=== PATIENT | female | born 1930 | race Caucasian/White ===

== ENCOUNTER 2017-03-18 19:10 | Observation (INO) | payer MEDICARE, OTHER ==
[2017-03-18] MEDS ORDERED: FAMOTIDINE 20 MG TAB PO ONE (19:37)
[2017-03-18] MEDS ORDERED: ONDANSETRON ODT 8 MG TAB SL ONE (19:37)
[2017-03-18] MEDS ORDERED: SODIUM CHLORIDE 0.9% 1000ML 1,000 ML IVS ONE (19:37)
[2017-03-18] MEDS ORDERED: ONDANSETRON ODT 8 MG TAB ONE (20:46)
[2017-03-18] MEDS ORDERED: FAMOTIDINE 20 MG TAB ONE (20:47)
--- NOTE | 2017-03-18 20:54 | CT ---
PROCEDURE: Head HISTORY: syncope Indication: Same as above Comparison: 03/08/2015 Technique: CT of the head was done without intravenous contrast was done in the orthogonal planes. This exam was performed according to our departmental dose-optimization program, which includes automated exposure control, adjustment of the mA and/or KV according to the patient's size and/or use of iterative reconstruction technique. FINDINGS: There is no intracranial hemorrhage, midline shift mass effect or acute focal infarct. There is presence of a large left superior periorbital and inferior frontal scalp swelling and hematoma measuring 3.6 x 1.5 x 3.2 cm There is prominence of the sylvian fissures and the cortical sulci reflecting age related volume loss. There is periventricular and deep white matter low attenuation, most likely related to small vessel white matter ischemic disease. Intracranial vascular calcifications are seen. If clinical concern exists regarding an acute ischemic/vascular pathology being responsible for patient's symptomatology, an MRI of the brain is more sensitive than the current study, in ruling out such a possibility. There is good stanley/white matter differentiation. The ventricular system is normal. The mastoid air cells are unremarkable . The paranasal sinuses are unremarkable . There is no visualization of acute fractures involving the calvarium or the skull base. IMPRESSION: There is no acute intracranial abnormality.There is presence of a large left superior periorbital and inferior frontal scalp swelling and hematoma measuring 3.6 x 1.5 x 3.2 cm Age related and chronic involutional changes are seen. Electronically signed by: Nathan Kelsey MD 03/18/2017 8:52 PM CDT Workstation: [id number]
--- NOTE | 2017-03-18 21:02 | RAD ---
PROCEDURE: Abdomen Series Clinical History: nvd 3 days Indication: Same as above Comparison: None Technique: Two views of the abdomen and pelvis were done. Findings: There is no gross evidence of free air in the abdomen or the pelvis . The small and large bowel gas pattern does not show any evidence of obstruction, ileus or bowel wall thickening. There is no visualization of radiopaque calculi in the outline of the urinary tract. The visualized lung bases are unremarkable . There is no significant constipation. Impression: There are no acute findings in the chest, abdomen and pelvis Location of Interpretation: [id number] Electronically signed by: Nathan Kelsey MD 03/18/2017 9:01 PM CDT Workstation: [id number]
[2017-03-18] MEDS ORDERED: SOD CHL 3% *HYPERTONIC* 500ML 160 ML IVS ONE (21:07)
[2017-03-18] MEDS ORDERED: SUCRALFATE 1 GM/10 ML 1 GM UD PO ONE (21:10)
[2017-03-18] MEDS ORDERED: LEVOTHYROXINE SODIUM 0.1 MG TAB ONE (21:39)
[2017-03-18] MEDS ORDERED: LEVOTHYROXINE SODIUM 0.025 MG TAB ONE (21:39)
--- NOTE | 2017-03-18 23:16 | ED.PDOC ---
History of Present Illness - General Chief Complaint: Syncope/Near Syncope Stated Complaint: nausea, diarhea, syncopal episode Time Seen by Provider: 03/18/17 19:21 Source: patient, family Exam Limitations: clinical condition - History of Present Illness Initial Comments: The patient is an 86-year-old female with history of some mild dementia presenting after a syncopal episode. The patient had been having some nausea and vomiting as well as some mild diarrhea for the last couple of days. Discussing with family she apparently has these episodes 5 or 6 times a year. They have seen gastroenterology in the distant past and she did have a endoscopy done however family is unsure of what the findings were at the time. She has not been having any fevers. She does not have any abdominal pain. She has a large hematoma over her left eye where she hit. She has had multiple falls in the past from similar previous syncopal episodes. Family is unsure what workup has been done to that end. Again the patient does have moderate dementia which limits her input. She is not short of breath. Aside from the discomfort over her eyes she is not hurting anywhere. Extraocular movements are intact and vision appears to be at baseline. There've been no recent medication changes. The patient is on several medications that can contribute to syncope including Norvasc, metoprolol, Aricept, and Toviaz. The patient was noted to be significantly bradycardic with a sinus bradycardia in the high 40s upon arrival here. This did improve over the next few hours with treatment. No chest pain. No shortness of breath. Family denies any blood or bile in the vomitus. No blood in the stool. No recent dietary changes.the patient also apparently does have a significant history of B12 deficiency. She also has a history of thyroid insufficiency. Timing/Duration: unsure Severity: moderate Improving Factors: nothing Worsening Factors: nothing Associated Symptoms: malaise, nausea/vomiting, syncope, weakness Allergies/Adverse Reactions: Allergies Beta Adrenergic Blockers Allergy (Verified 03/18/17 19:35) Home Medications: Ambulatory Orders Amlodipine Besylate [Norvasc] 10 mg PO DAILY 03/08/15 Carboxymethylcellulose Sodium [Refresh Tears] 0.5 % OP DAILY 03/08/15 Cyanocobalamin [Vitamin B-12] 2,500 mcg SL DAILY 03/08/15 Donepezil Hydrochloride [Donepezil HCl] 10 mg PO DAILY 03/08/15 Garlic [Garlic 705 mg] 1 cap PO DAILY 03/08/15 Levothyroxine Sodium [Synthroid] 75 mcg PO DAILY 03/08/15 Metoprolol Succinate [Metoprolol Succinate ER] 25 mg PO DAILY 03/08/15 Multiple Vitamin [Ocuvite] 1 tab PO DAILY 03/08/15 Potassium Chloride [Potassium Chloride ER] 40 meq PO BID 03/08/15 Timolol Maleate (Ophth) [Timolol Maleate] 0.25 % OPHTH DAILY 03/08/15 Triamterene & Hydrochlorothiaz [Triamterene/Hydrochloroth 37.5-25 mg] 1 cap PO DAILY 03/08/15 Zinc Gluconate [Zinc] 10 mg MT DAILY 03/08/15 Magnesium 1 tab PO 03/18/17 Review of Systems - Review of Systems Constitutional: States: malaise, weakness EENTM: States: no symptoms reported Respiratory: States: no symptoms reported Cardiology: States: no symptoms reported Gastrointestinal/Abdominal: States: diarrhea, nausea, vomiting. Denies: abdominal pain, constipation Genitourinary: States: no symptoms reported Musculoskeletal: States: no symptoms reported Skin: States: see HPI Neurological: States: other - syncope and dementia Endocrine: States: excessive sweating - the patient was mildly diaphoretic upon arrival here. All other Systems: No Change from Baseline Past Medical History (General) - Patient Medical History Hx Seizures: No Hx Stroke: No Hx Cardiac Disorders: No Hx Congestive Heart Failure: No Hx Pacemaker: No Hx Hypertension: Yes Hx Thyroid Disease: Yes Hx Diabetes: No Surgical History: appendectomy, cholecystectomy, Hysterectomy - Vaccination History Hx Influenza Vaccination: Yes Hx Pneumococcal Vaccination: Yes - Social History Hx Tobacco Use: No Hx Alcohol Use: No Family Medical History - Family History Mother Hx Cardiac Disease: Yes Physical Exam - Physical Exam General Appearance: Alert, Ill Appearing Eye Exam: bilateral normal Ears, Nose, Throat: hearing grossly normal, normal ENT inspection, normal pharynx, other - large hematoma is present over the right eye. 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 The patient seems to follow instructions well. She recognizes her family members. She understands she is at the hospital. Skin Exam: normal color - with the exception of the hematoma over the left eye. No evidence of bony crepitus underlying. Comments: Vital Signs - 24 hr 03/18/17 03/18/17 03/18/17 19:26 20:10 21:10 Temperature 95.0 F L Pulse Rate [ 48 L 48 L 54 L Apical] Respiratory 14 16 15 Rate Blood Pressure 155/51 96/49 127/58 [Left Arm] O2 Sat by Pulse 97 97 96 Oximetry 03/18/17 03/18/17 03/18/17 21:51 22:00 22:17 Temperature 96.7 F L Pulse Rate [ 61 62 68 Apical] Respiratory 15 Rate Blood Pressure 155/75 160/67 183/63 [Left Arm] O2 Sat by Pulse 95 Oximetry 03/18/17 03/18/17 22:18 22:49 Temperature Pulse Rate [ 66 62 Apical] Respiratory 12 Rate Blood Pressure 128/66 139/64 [Left Arm] O2 Sat by Pulse 96 Oximetry Progress - Progress Progress: 03/18/17 23:21 the patient is a 86-year-old female with advancing dementia presenting after a syncopal episode related to one of her nausea and vomiting episodes. The patient was given a liter of IV fluids. She is feeling a little better afterwards. The patient had significant sinus bradycardia upon arrival and this has improved as well. The patient has significant hyponatremia and hypochloremia. She has received a liter of normal saline and is currently receiving low-flow 3% saline for a total of 160 cc. She will need a recheck of her electrolytes in the morning. The patient additionally appears to be hypothyroid with a TSH of around 15. Medications will need to be adjusted. Patient does have elevation of muscle enzymes which may be from the fall. Consideration should be given to discontinuation of the statin in a person of her age with her numerous concomitant medications. Head CT is reassuring. Consideration should be given to obtaining carotid Dopplers within the coming weeks. Continue telemetry monitoring. Consideration could also be given to reducing the metoprolol dose possibly reducing the Norvasc doses well. The B12 level should be checked sometime in the next few weeks. Admit for management of the above problems.a repeat evaluation with gastroenterology in the near future may be warranted.the scalp hematoma appears static at this point. - Results/Orders Results/Orders: 03/18/17 19:45 EKG STAT shows sinus bradycardia at a rate of 54 bpm. There is at least one PAC. There is a left bundle branch block which was present since 2015 in comparison. No definitive acute ST segment changes in comparison with previous EKG. Laboratory Results - last 24 hr 03/18/17 03/18/17 03/18/17 19:50 19:50 19:50 WBC 12.8 H RBC 4.71 Hgb 14.2 Hct 43.1 MCV 91.4 MCH 30.2 MCHC 33.1 RDW 14.0 Plt Count 243 MPV 8.7 Absolute Neuts (auto) 9.40 H Absolute Lymphs (auto) 1.90 Absolute Monos (auto) 1.10 H Absolute Eos (auto) 0.30 Absolute Basos (auto) 0.10 Neutrophils % 73.8 Lymphocytes % 15.1 L Monocytes % 8.4 Eosinophils % 2.0 Basophils % 0.7 PT 11.0 INR 0.970 PTT (SP) 23.3 L Sodium 126 L Potassium 3.6 Chloride 90 L Carbon Dioxide 26 Anion Gap 13.6 BUN 12 Creatinine 0.68 BUN/Creatinine Ratio 17.6 Random Glucose 197 H Serum Osmolality 258.6 L Lactic Acid Calcium 9.7 Magnesium 1.9 Total Bilirubin 1.0 AST 26 ALT 12 Alkaline Phosphatase 60 Creatine Kinase 158 H CK-MB (CK-2) 5.0 H* CK-MB (CK-2) % 3.16 Troponin I < 0.02 B-Natriuretic Peptide 71.1 Serum Total Protein 7.6 Albumin 4.4 Globulin 3.2 Albumin/Globulin Ratio 1.4 Amylase 60 Lipase 32 TSH 15.42 H Urine Color Urine Appearance Urine pH Ur Specific West Urine Protein Urine Glucose (UA) Urine Ketones Urine Blood Urine Nitrite Urine Bilirubin Urine Urobilinogen Ur Leukocyte Esterase Urine RBC Urine WBC Amorphous Sediment Urine Bacteria 03/18/17 03/18/17 19:50 22:15 WBC RBC Hgb Hct MCV MCH MCHC RDW Plt Count MPV Absolute Neuts (auto) Absolute Lymphs (auto) Absolute Monos (auto) Absolute Eos (auto) Absolute Basos (auto) Neutrophils % Lymphocytes % Monocytes % Eosinophils % Basophils % PT INR PTT (SP) Sodium Potassium Chloride Carbon Dioxide Anion Gap BUN Creatinine BUN/Creatinine Ratio Random Glucose Serum Osmolality Lactic Acid 1.1 Calcium Magnesium Total Bilirubin AST ALT Alkaline Phosphatase Creatine Kinase CK-MB (CK-2) CK-MB (CK-2) % Troponin I B-Natriuretic Peptide Serum Total Protein Albumin Globulin Albumin/Globulin Ratio Amylase Lipase TSH Urine Color Yellow Urine Appearance Sl cloudy Urine pH 7.5 Ur Specific West 1.020 Urine Protein 30 Urine Glucose (UA) Negative Urine Ketones Negative Urine Blood Negative Urine Nitrite Negative Urine Bilirubin Negative Urine Urobilinogen 0.2 Ur Leukocyte Esterase Negative Urine RBC 0 Urine WBC 1-3 Amorphous Sediment 3+ Urine Bacteria 2+ H two-view abdomen shows no acute pathology. head CT shows the left scalp hematoma but no other acute pathology. - EKG/XRAY/CT CT Ordered: Yes Departure - Departure Clinical Impression: Hyponatremia Syncope Qualifiers: Syncope type: unspecified Qualified Code(s): R55 - Syncope and collapse Hypothyroidism Qualifiers: Hypothyroidism type: unspecified Qualified Code(s): E03.9 - Hypothyroidism, unspecified Cyclical vomiting with nausea Qualifiers: Vomiting Intractability: non-intractable Qualified Code(s): G43.A0 - Cyclical vomiting, not intractable Disposition: Admit Patient Home Medications: Ambulatory Orders Amlodipine Besylate [Norvasc] 10 mg PO DAILY 03/08/15 Carboxymethylcellulose Sodium [Refresh Tears] 0.5 % OP DAILY 03/08/15 Cyanocobalamin [Vitamin B-12] 2,500 mcg SL DAILY 03/08/15 Donepezil Hydrochloride [Donepezil HCl] 10 mg PO DAILY 03/08/15 Garlic [Garlic 705 mg] 1 cap PO DAILY 03/08/15 Levothyroxine Sodium [Synthroid] 75 mcg PO DAILY 03/08/15 Metoprolol Succinate [Metoprolol Succinate ER] 25 mg PO DAILY 03/08/15 Multiple Vitamin [Ocuvite] 1 tab PO DAILY 03/08/15 Potassium Chloride [Potassium Chloride ER] 40 meq PO BID 03/08/15 Timolol Maleate (Ophth) [Timolol Maleate] 0.25 % OPHTH DAILY 03/08/15 Triamterene & Hydrochlorothiaz [Triamterene/Hydrochloroth 37.5-25 mg] 1 cap PO DAILY 03/08/15 Zinc Gluconate [Zinc] 10 mg MT DAILY 03/08/15 Magnesium 1 tab PO 03/18/17 Decision To Admit - Decistion To Admit Decision to Admit Reason: Medical Nature Decision to Admit Date: 03/18/17 Decision to Admit Time: 23:26
--- NOTE | 2017-03-18 23:27 | HP ---
SUPERVISING PHYSICIAN: Ramírez Garcia MD CHIEF COMPLAINT: Syncopal episode with diarrhea. HISTORY OF PRESENT ILLNESS: Ms. Wellington is an 86-year-old, female patient who presented to the Emergency Department on 03/18/17 after she was having some episodes of diarrhea with some nausea over the last couple of days. It was noted on exam initially that she had a severe hematoma and ecchymotic area to the left orbital area from a fall. She noted she had tripped this previous or Saturday at home and landed on a chair. She denied any loss of consciousness, any headaches, any changes in vision. Her vital signs initially in the Emergency Department showed that she was bradycardic with a heart rate of 48. Blood pressure was 155/51. She was afebrile and satting 95 on room air. Review of the Emergency Room records indicate that the patient has had multiple episodes in the past year, 5 to 6 times, where she has had cyclic type vomiting and she was actually followed in the past by gastroenterology. Laboratory studies showed she had a mild leukocytosis of 12.8. Electrolytes included hyponatremia with sodium 126. TSH was elevated at 15.2. She does have a history of hypothyroidism for which she takes levothyroxine. In the Emergency Room, she was started on hypertonic saline and given a total of 116 cc in efforts to correct the sodium. Also of note, she does take a blood pressure medicine combination that has hydrochlorothiazide 25 mg. Her 12 lead EKG showed a sinus bradycardia with a left bundle branch block which was similar to comparison in 2015. There were no noted acute ST segment changes. She then had a CT of the head for evaluation of the above head injury from same level fall and per radiologic interpretation, CT head without contrast showed no intracranial hemorrhage, midline shift, mass effects, or acute focal infarct. There was note of a large left superior periorbital and frontal scalp swelling and hematoma. She also had an abdominal series and per radiologic interpretation there were no acute findings in the chest, abdomen or pelvis. Dr. Kaur, Emergency Room physician, requested the patient be placed in observation with concerns for hyponatremia resulting in her fall in the past with hypertonic saline initiated in the Emergency Room as well as further investigation of the diarrhea as necessary and further close management. The patient was placed in observation in stable condition. PAST MEDICAL HISTORY: 1. Hypertension. 2. Dementia. 3. Hypothyroidism. PAST SURGICAL HISTORY: 1. Appendectomy. 2. Cholecystectomy. 3. Hysterectomy. HOME MEDICATIONS: 1. Donepezil 10 mg daily. 2. Vitamin B12 2500 mcg sublingual daily. 3. Refresh artificial tears 0.5% ophthalmic solution daily. 4. Norvasc 10 mg daily. 5. Zinc 10 mg daily. 6. Triamterene and hydrochlorothiazide 37.5/25 mg 1 capsule daily. 7. Timolol 0.25% ophthalmic solution daily. 8. Potassium chloride extended release 40 mEq twice daily. 9. Multivitamin, Ocuvite 1 capsule daily. 10. Metoprolol succinate extended release 25 mg daily. 11. Synthroid 75 mcg daily. 12. Garlic supplementation daily. 13. Magnesium daily. ALLERGIES: BETA ADRENERGIC BLOCKERS. FAMILY HISTORY: Positive for hypertension and cardiovascular disease. SOCIAL HISTORY: The patient lives outside of [place]. She is . 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 She has no history of smoking or tobacco use of any sort, nor does she drink alcohol or utilize illicit drugs. REVIEW OF SYSTEMS: CONSTITUTIONAL: As noted in history of present illness, malaise and weakness. HEENT: As noted in history of present illness, old traumatic injury, closed head injury from a same level fall with no reported changes in vision or orbital pain. RESPIRATORY: Denies any shortness of breath, cough. CARDIOVASCULAR: Denies chest pain or palpitations. As per history of present illness, questionable syncopal episode at home in the last several days. GASTROINTESTINAL: Denies abdominal pain or constipation, but notes she has had some diarrhea, nausea and vomiting. GENITOURINARY: Denies any symptoms. NEUROLOGIC: As noted in history of present illness, syncopal episode and dementia. PHYSICAL EXAMINATION: VITAL SIGNS: Initial vital signs in the Emergency Department showed temperature 95, pulse 48, blood pressure 155/51, respirations 14, saturation 95% on room air. Admission weight was 60.8 kg. GENERAL: The patient appears to be comfortable and in no acute distress. She does appear to be ill. There is noticeable swelling over the left eye which she says is without any vision changes at this point. Large hematoma overlies the right eyelid with notable changes in color from yellow to black. HEENT: Pupils equal and reactive. NECK: Full range of motion. No jugular venous distention noted. CHEST: Lungs clear to auscultation bilaterally without any rhonchi, wheezes, or rales. CARDIOVASCULAR: Regular rate and rhythm without any appreciable murmurs, gallops, or rubs. ABDOMEN: Obese, but soft, nontender. Positive bowel sounds. EXTREMITIES: There is no edema on admission. Distal pulses are strong. Capillary refill brisk. NEUROLOGIC: Cranial nerves II-XII are grossly intact. Facial features are symmetrical. Extraocular movements are within normal limits. Pupils were reactive and responsive to light. LABORATORY: CBC on admission showed a mild leukocytosis of 12.8, hemoglobin 14.2, hematocrit 43.1, platelet count 243,000. Differential without left shift initially. Coag studies showed PT 11 with PT-T 23.3. Chemistries on admission show sodium 126, potassium normal at 3.6, BUN 12, creatinine 0.68, glucose 197, lactic acid 1.1, CPK elevated at 158 with CK-MB of 5. Initial laboratories included TSH and lipase. Lipase was negative with TSH being elevated at 15.4. Pancreatic enzymes were all within normal limits. Troponin was less than 0.02. Urinalysis showed microscopic with 0 RBCs, 1 to 3 WBCs, 2+ bacteria, otherwise within normal limits. RADIOLOGY: Abdominal x-ray per radiologic interpretation showed no acute findings in the chest, abdomen and pelvis. She also had an abdominopelvic series and per radiologic interpretation, there are no acute findings. EKG showed sinus bradycardic rhythm of 54 with what appears to be a first degree AV block and there was note of one rare PAC on exam. There was also note of a left bundle branch that was present since 2015 on comparison. ASSESSMENT: 1. Electrolyte imbalance to include a moderate hyponatremia, felt to be secondary to medications to include hydrochlorothiazide, possibly resulting in the patient having some disorientation and falls in the past. 2. Hypertension. 3. Dementia. 4. Near syncopal episode. 5. Hypothyroidism with elevated TSH on supplementation. 6. Closed head injury with a large hematoma with no evidence of orbital involvement, secondary to recent same level fall. PLAN: The patient was placed in observation on the Medical/Surgical Floor from the Emergency Room with correction of sodium being initiated and continued prior to admission with hypertonic saline for a total of 116 mL. We will plan to repeat laboratory studies in the morning. We will update her list of medications, verify and resume as soon as available. She will be on DVT prophylaxis per protocol with anticipated length of stay to be one to two days, hopefully discharging later today. Until then, we will continue to monitor the patient closely and treat appropriately and address any issues that arise. #[id number] [facility]
[2017-03-19] MEDS ORDERED: ACETAMINOPHEN 325 MG TAB PO PRN (01:28)
[2017-03-19] MEDS ORDERED: SODIUM CHLORIDE 0.9% (FLUSH) 10 ML SYG IV PRN (01:28)
[2017-03-19] MEDS ORDERED: IV SET AND CAP CHANGE INJ INJ SCH (01:30)
[2017-03-19 05:59] VITALS: O2SAT 95
[2017-03-19] MEDS ORDERED: SODIUM CHLORIDE 0.9% (FLUSH) 10 ML SYG IV SCH (09:00)
[2017-03-19 10:49] VITALS: BP 137/70; TEMP 98.5
--- NOTE | 2017-03-19 14:26 | RAD ---
EXAM DESCRIPTION: Orbits CLINICAL HISTORY: fall COMPARISON: CT head March 18, 2017 IMPRESSION: 3 views of the skull and left orbit show no obvious fracture or focal bone destruction. There is asymmetric opacification of the left maxillary sinus compared to the right suggesting subacute chronic sinus disease. Periorbital soft tissue swelling on previous CT scan is not appreciated on plain film x-ray. Electronically signed by: Mook Calles MD 03/19/2017 2:25 PM CDT
[2017-03-19] MEDS ORDERED: LEVOTHYROXINE SODIUM 0.1 MG, LEVOTHYROXINE SODIUM 0.025 MG PO ONE ×2 (21:09)
--- NOTE | 2017-03-20 11:59 | DS ---
SUPERVISING PHYSICIAN: Ramírez Garcia MD DISCHARGE DIAGNOSIS: 1. Electrolyte imbalance to include moderate hyponatremia, most likely secondary to medications that include hydrochlorothiazide, probably resulting in the patient having some disorientation and history of falls in the past. 2. Hypertension. 3. Dementia. 4. Near syncopal episode. 5. Hypothyroidism with elevated TSH on supplementation. 6. Closed head injury with a large hematoma with no evidence of orbital involvement, secondary to recent same level fall. HISTORY OF PRESENT ILLNESS: This is an 86-year-old, female patient who presented to the Emergency Department on 03/18/17 after she has some episodes of diarrhea with some nausea that had been going on for several days. She actually fell at home and had a large hematoma with ecchymosis to the left orbital area from the fall. She had tripped and fallen onto a chair. She denied any loss of consciousness, any headaches or any changes in vision. Her vital signs initially in the Emergency Department were stable with the exception of her heart rate was bradycardic with a heart rate of 48. The records show that the patient has had multiple episodes of diarrhea, nausea and vomiting, 5 to 6 times per year, and that she is actually being followed by gastroenterology. 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 Initial laboratory studies showed she had a leukocytosis of 12.8 and hyponatremia with sodium 126. TSH was elevated at 15.2. She is on levothyroxine. In the Emergency Room, she was given some hypertonic saline with a total of 116 cc. She also takes hydrochlorothiazide at home. Her EKG was similar to her EKG in 2015 and showed a left bundle branch block with bradycardia. She had a CT of the head and per radiologic interpretation, CT head without contrast showed no intracranial hemorrhage, midline shift, mass effect, or acute focal infarct. She had a large large left superior periorbital and frontal scalp swelling and hematoma. Her abdominal series per radiologic interpretation showed no acute findings in the chest, abdomen or pelvis. The patient was placed in observation for concerns of hyponatremia as well as her diarrhea and to monitor her electrolytes. HOSPITAL COURSE: The patient was given IV fluids and she had no other incidences of diarrhea or nausea and vomiting. This morning, her sodium improved to 132 with potassium 3.4. Chloride was 98. Her levothyroxine was increased and she was started on a dose of 125 mcg of levothyroxine times one. Orbital x-ray series was done on her eye and she will be discharged. DISCHARGE PLAN: The patient will be discharged home in stable condition. She is to return to the hospital or followup with Lincoln Beasley, her primary care provider, for any further problems. Per the chart, her levothyroxine was at 75 mcg and I have increased it to 100 mcg. She will followup with Lincoln Beasley on , 03/21/17, at 10:30 AM. She will need to have a repeat of her lab to check her sodium level. He can review her x-ray of her orbits as well as discuss her new dosing of levothyroxine and followup on her TSH levels. She is to resume her previous diet and continue her home medications. DISCHARGE MEDICATIONS.: 1. Multivitamins. 2. Refresh tears. 3. Timolol maleate ophthalmic drops. 4. Vitamin B12. 5. Zinc. 6. Donepezil. 7. Potassium chloride. 8. Metoprolol succinate. 9. Triamterene/hydrochlorothiazide. 10. Levothyroxine 100 mcg daily. 11. Amlodipine. 12. Garlic. 13. Magnesium. Dr. Garcia is the collaborating physician and available for consultation. #[id number] [facility]
== END 2017-03-19 14:46 | disposition home or self-care (01) ==
LOC: ER 19:10 → MS 23:25
PROVIDERS: ADMIT Nurse Practitioner Family; ATTEND Nurse Practitioner Family
DX: E87.1 Hypo-osmolality and hyponatremia (principal); E87.8 Other disorders of electrolyte and fluid balance, not elsewhere classified; I10 Essential (primary) hypertension; F03.90 Unspecified dementia, unspecified severity, without behavioral disturbance, psychotic disturbance, mood disturbance, and anxiety; R55 Syncope and collapse; E03.9 Hypothyroidism, unspecified; S05.12XA Contusion of eyeball and orbital tissues, left eye, initial encounter; S09.90XA Unspecified injury of head, initial encounter; D72.829 Elevated white blood cell count, unspecified; I44.7 Left bundle-branch block, unspecified; W01.0XXA Fall on same level from slipping, tripping and stumbling without subsequent striking against object, initial encounter; Y92.009 Unspecified place in unspecified non-institutional (private) residence as the place of occurrence of the external cause; Z79.899 Other long term (current) drug therapy; Z88.8 Allergy status to other drugs, medicaments and biological substances; Z91.81 History of falling; Z90.49 Acquired absence of other specified parts of digestive tract; Z90.710 Acquired absence of both cervix and uterus; Z82.49 Family history of ischemic heart disease and other diseases of the circulatory system
CPT/HCPCS: 36415 ×3; 70200; 70450; 74020; 80048; 80053; 81001; 82150; 82550; 82553; 83605; 83690; 83735; 83880; 84443; 84484; 85025; 85610; 85730; 93005; 94760; 96361; 96365; 96366 ×2; 97116; 97162; 99284; G8978; G8979; G8980; J7030; J7799

== ENCOUNTER → 2017-11-04 | Outpatient (CLI) | payer MEDICARE, OTHER ==
--- NOTE | 2017-11-04 15:41 | RAD ---
EXAM DESCRIPTION: Hand,Right 2 Views CLINICAL HISTORY: TRAUMATIC ARTHROPATHY COMPARISON: None. IMPRESSION: 2 views of the right hand show no evidence of acute fracture, focal bone destruction, or joint dislocation. Severe joint space narrowing with severe joint line osteophytes of the DIP joint of the second digit are seen consistent with severe osteoarthritic changes. Mild to moderate joint space narrowing and joint line osteophytes of the interphalangeal joints throughout the other digits of the hand are seen consistent with moderate to severe osteoarthritic changes. Severe joint space narrowing with sclerotic changes and joint line osteophytes of the first carpometacarpal joint are seen consistent with severe advanced osteoarthritic changes. Electronically signed by: Mook Calles MD 11/04/2017 3:40 PM CDT
--- NOTE | 2017-11-04 16:04 | RAD ---
EXAM DESCRIPTION: Wrist,Right 2 Views CLINICAL HISTORY: TRAUMATIC ARTHROPATHY COMPARISON: None. IMPRESSION: 2 views of the right wrist show diffuse osteopenia of the osseous structures. No acute fracture, focal bone destruction, or joint dislocation is seen. Severe joint space narrowing with bony hypertrophy and sclerotic margins of the first carpometacarpal joint and STT joints is seen consistent with severe advanced osteoarthritic changes. There is 3 mm of ulnar negative variance. Calcifications of the triangular fibrocartilage complex is seen suggesting chondrocalcinosis and possible CPPD arthropathy. Moderate to severe osteoarthritic changes of the right first metacarpophalangeal joint and interphalangeal joints of the hand are seen. Electronically signed by: Mook Calles MD 11/04/2017 4:02 PM CDT
== END ==
LOC: RAD 11:30
PROVIDERS: ATTEND Nurse Practitioner Family
DX: M12.531 Traumatic arthropathy, right wrist (principal); S69.90XA Unspecified injury of unspecified wrist, hand and finger(s), initial encounter

== ENCOUNTER 2017-11-06 10:34 | Inpatient (IN) | payer MEDICARE, OTHER ==
--- NOTE | 2017-11-06 10:58 | ED.PDOC ---
History of Present Illness - General Chief Complaint: Lower Extremity Injury Stated Complaint: LEFT ANKLE PAIN Time Seen by Provider: 11/06/17 10:55 Source: patient, family Exam Limitations: no limitations - History of Present Illness Initial Comments: PT REPORTS L ANKLE PAIN AFTER SUSTAINING A MECHANICAL FALL IN HER KITCHEN YESTERDAY. PT REPORTS PAIN AND SWELLING WERE WORSE THIS AM. PT HAS BEEN UNABLE TO BEAR WEIGHT ON THE AFFECTED LIMB SINCE THE FALL. Occurred: yesterday Pain - Lower Extremity: severe: Left Ankle Method of Injury: fell Improving Factors: immobilization Worsening Factors: movement Allergies/Adverse Reactions: Allergies SADAF Inhibitors Allergy (Verified 11/06/17 12:50) Beta Adrenergic Blockers Allergy (Verified 03/18/17 19:35) Home Medications: Ambulatory Orders Amlodipine Besylate [Norvasc] 10 mg PO DAILY 03/08/15 Carboxymethylcellulose Sodium [Refresh Tears] 0.5 % OP DAILY 03/08/15 Cyanocobalamin [Vitamin B-12] 2,500 mcg SL DAILY 03/08/15 Metoprolol Succinate [Metoprolol Succinate ER] 25 mg PO DAILY 03/08/15 Multiple Vitamin [Ocuvite] 1 tab PO DAILY 03/08/15 Potassium Chloride [Potassium Chloride ER] 40 meq PO BID 03/08/15 Timolol Maleate (Ophth) [Timolol Maleate] 0.25 % OPHTH DAILY 03/08/15 Triamterene & Hydrochlorothiaz [Triamterene/Hydrochloroth 37.5-25 mg] 1 cap PO DAILY 03/08/15 Zinc Gluconate [Zinc] 10 mg MT DAILY 03/08/15 Magnesium 1 tab PO 03/18/17 Donepezil Hydrochloride [Donepezil HCl] 23 mg PO DAILY 11/06/17 Ferrous Gluconate mg PO DAILY 11/06/17 Levothyroxine Sodium [Synthroid] 75 mcg PO DAILY 11/06/17 Magnesium Chloride-Calcium Car [Slow Magnesium/Calcium] 1 tab PO DAILY 11/06/17 Timolol Maleate (Ophth) [Timolol Maleate] 1 % OPHTH BEDTIME 11/06/17 Review of Systems - Review of Systems Constitutional: Denies: chills, fever EENTM: Denies: ear pain, nose congestion Respiratory: Denies: cough, short of breath Cardiology: Denies: chest pain, palpitations Gastrointestinal/Abdominal: Denies: nausea, vomiting Genitourinary: Denies: dysuria, frequency Musculoskeletal: States: see HPI, joint pain, joint swelling Skin: States: see HPI, change in color. Denies: lesions Past Medical History (General) - Patient Medical History Hx Seizures: No Hx Stroke: No Hx Asthma: Yes - allergies Hx of COPD: No Hx Cardiac Disorders: No Hx Congestive Heart Failure: No Hx Pacemaker: No Hx Hypertension: Yes Hx Thyroid Disease: Yes Hx Diabetes: No Hx MRSA: No Surgical History: appendectomy, cholecystectomy, tonsillectomy Other Surgeries:: KNEE SURGERY - Vaccination History Hx Influenza Vaccination: Yes Hx Pneumococcal Vaccination: Yes - Social History Hx Tobacco Use: No Hx Alcohol Use: No Hx Substance Use: No Hx Physical Abuse: No Hx Emotional Abuse: No Family Medical History - Family History Mother Living Status: Hx Family Stroke: Yes Hx Cardiac Disease: Yes Father Living Status: Hx Cardiac Disease: Yes Physical Exam - Physical Exam General Appearance: Alert, No apparent distress, Well Developed, Well Groomed, Well Hydrated, Well Nourished Eyes, Ears, Nose, Throat: normal ENT inspection Cardiovascular/Respiratory: no respiratory distress Thigh/Hip: normal inspection, non-tender, no evidence of injury Leg: normal inspection, non-tender, no evidence of injury Knee: normal inspection, non-tender, no evidence of injury Ankle: bone tenderness - DIFFUSE, ecchymosis - SIGNIFICANT, limited ROM, soft tissue tenderness, swelling - DIFFUSE SEVERE Foot: non-tender, no evidence of injury, normal ROM Neuro/Tendon: normal sensation, normal motor functions, normal tendon functions Mental Status: alert, oriented x 3 Skin: normal color, warm/dry Progress - Progress Progress: 11/06/17 11:[address] HUTCHINS VOICEMAIL. AFTER NOT RECIEVING A CALLBACK IN 20 MINUTES, CALL PLACED TO [facility]. CASE DISCUSSED WITH DR. BANG WHO AGREED TO ADMIT. 11/06/17 12:58 DR. EUBANKS CALLED THE ED. CASE DISCUSSED. HE AGREES TO OPERATE IN THE AM. ARRANGEMENTS MADE FOR ADMISSION. TRANSFER TO [facility] CANCELLED. - EKG/XRAY/CT XRAY: ankle - BIMALLEOLAR FX/DISLOCATION, PER RAD Procedures - Joint Reduction ankle Conscious Sedation: Yes - PT GIVEN 2.5MG IV VERSED AND 4MG IV MORPHINE PRIOR TO PROCEDURE Reduction Attempts: 1 Pre-Procedure NV Exam: Yes Post Joint Reduction Film: joint reduced Progress: AFTER PATIENT WAS ADEQUATELY SEDATED, TRACTION APPLIED TO L ANKLE AND JOINT WAS ALIGNED. ORTHOGLASS POSTERIOR AND STIRRUP SPLINT WAS APPLIED WITH FOOT AT A 90DEGREE ANGLE. PT TOLERATED PROCEDURE WELL, AND WAS EASILY AROUSED WITH VERBAL STIMULI AFTER PROCEDURE. NEUROVASCULAR EXAM NORMAL AFTER PROCEDURE. POST REDUCTION FILM WERE OBTAINED. Departure - Departure Clinical Impression: Bimalleolar fracture of left ankle, Dislocation of ankle, left, closed Time of Disposition: 12:59 Disposition: Admit Patient Condition: Fair Departure Forms: ED Discharge - Pt. Copy, Patient Portal Self Enrollment Instructions: DI for Leg Pain Referrals: MARIA ELENA RYAN IV, [employer] [Primary Care Provider] - 1-2 Weeks Home Medications: Ambulatory Orders Amlodipine Besylate [Norvasc] 10 mg PO DAILY 03/08/15 Carboxymethylcellulose Sodium [Refresh Tears] 0.5 % OP DAILY 03/08/15 Cyanocobalamin [Vitamin B-12] 2,500 mcg SL DAILY 03/08/15 Metoprolol Succinate [Metoprolol Succinate ER] 25 mg PO DAILY 03/08/15 Multiple Vitamin [Ocuvite] 1 tab PO DAILY 03/08/15 Potassium Chloride [Potassium Chloride ER] 40 meq PO BID 03/08/15 Timolol Maleate (Ophth) [Timolol Maleate] 0.25 % OPHTH DAILY 03/08/15 Triamterene & Hydrochlorothiaz [Triamterene/Hydrochloroth 37.5-25 mg] 1 cap PO DAILY 03/08/15 Zinc Gluconate [Zinc] 10 mg MT DAILY 03/08/15 Magnesium 1 tab PO 03/18/17 Donepezil Hydrochloride [Donepezil HCl] 23 mg PO DAILY 11/06/17 Ferrous Gluconate mg PO DAILY 11/06/17 Levothyroxine Sodium [Synthroid] 75 mcg PO DAILY 11/06/17 Magnesium Chloride-Calcium Car [Slow Magnesium/Calcium] 1 tab PO DAILY 11/06/17 Timolol Maleate (Ophth) [Timolol Maleate] 1 % OPHTH BEDTIME 11/06/17 Decision To Admit - Decistion To Admit Decision to Admit Reason: Admit from ER Decision to Admit Date: 11/06/17 - CASE DISCUSSED WITH DR. EUBANKS AND EDUIN VELASCO. Decision to Admit Time: 13:00
--- NOTE | 2017-11-06 11:39 | RAD ---
EXAM DESCRIPTION: Ankle,Left 3 Views CLINICAL HISTORY: 87 years Female, trauma COMPARISON: None. FINDINGS: 3 views of the left ankle show irregular transverse, displaced fracture of the distal fibula at the level of the ankle mortise. Lateral and posterior displacement of the distal fracture fragment is seen. There is obliquely oriented displaced fracture of the distal tibia extending into the articular surface with approximately 1 cm posterior and proximal displacement of the posterior fracture fragment. There are well-corticated osseous bodies in the region of the medial malleolus without convincing evidence of acute fracture. There is greater than 1 cm lateral displacement of the talus relative to the distal tibia consistent with ligamentous injury. Diffuse soft tissue swelling of the ankle is noted. The osseous structures are diffusely osteopenic. IMPRESSION: Displaced fractures of the left distal fibula and posterior tibia are seen without convincing evidence of medial malleolar fracture. There is disruption of the ankle mortise and lateral displacement/dislocation of the talus relative to the distal tibia suggesting ligamentous injury as well. Well-corticated osseous bodies in the medial malleolus region could represent accessory centers of ossification versus sequela of remote prior trauma. Electronically signed by: Mook Calles MD 11/06/2017 11:37 AM CDT
[2017-11-06] MEDS ORDERED: MORPHINE SULFATE INJ 10 MG/ML VIAL ONE (12:16)
[2017-11-06] MEDS ORDERED: MIDAZOLAM INJ 5 MG/5 ML VIAL ONE (12:16)
[2017-11-06] MEDS ORDERED: MIDAZOLAM INJ 5 MG/5 ML VIAL IV ONE (12:27)
[2017-11-06] MEDS ORDERED: MORPHINE SULFATE INJ 10 MG/ML VIAL IV ONE (12:28)
--- NOTE | 2017-11-06 12:47 | RAD ---
EXAM DESCRIPTION: Ankle,Left 2 Views CLINICAL HISTORY: 87 years Female, post reduction COMPARISON: Radiographs of the left ankle dated 11/05/2017. TECHNIQUE: AP, oblique and lateral radiographs. FINDINGS: The visualized bones appear well mineralized. IV identified is a comminuted fracture of the distal fibula with improved alignment of the fracture fragments.. There is persistent disruption of the ankle mortise with widening of the medial joint space. Diffuse soft tissue swelling is identified. IMPRESSION: Improved alignment of the distal fibular fracture fragments. Disruption of the ankle mortise with widening of the medial joint space. Electronically signed by: Dodie Anne MD 11/06/2017 12:46 PM CDT
--- NOTE | 2017-11-06 13:04 | HP ---
SUPERVISING PHYSICIAN: Ramírez Garcia M.D. CHIEF COMPLAINT: Left ankle pain. HISTORY OF PRESENT ILLNESS: This is an 87 year-old female who yesterday actually fell at home in her kitchen. Upon trying to stand, she could not really weight bear and the pain and swelling were worse this morning. Therefore she came to the Emergency Room. She was found to have a bimalleolar fracture of the left ankle. It was displaced and it was reduced in the Emergency Room. Dr. Gutierrez was consulted and agreed to consult and perform surgical intervention tomorrow for repair, therefore she has been admitted for preoperative clearance and pain control. Currently the patient is alert and oriented. She does not have any significant complaints of pain right now. She does state that her ankle sanchez a little bit. She is able to feel me touch her toes without any difficulty. Capillary refill is within normal limits as well. PAST MEDICAL HISTORY: 1. Hypertension. 2. Dementia. 3. Hypothyroidism. PAST SURGICAL HISTORY: 1. Right knee arthroscopy. 2. Appendectomy. 3. Cholecystectomy. 4. Hysterectomy. CURRENT MEDICATIONS: They have not quite been confirmed in the EMR. Please see the completed list once they are confirmed. ALLERGIES: BETA BLOCKERS AND SADAF INHIBITORS ACCORDING TO THE RECORD. FAMILY HISTORY: Hypertension and cardiovascular disease. SOCIAL HISTORY: The patient is a nondrinker and nonsmoker. No illicit drugs. She lives with her . REVIEW OF SYSTEMS: CONSTITUTIONAL: No fever or chills. No recent weight loss or weight gain. HEENT: No headaches, vision changes, ear pain, nasal congestion or throat pain. RESPIRATORY: No cough, hemoptysis of pleuritic chest pain. CARDIOVASCULAR: No chest pain, palpitations or peripheral edema. GASTROINTESTINAL: No nausea, vomiting, diarrhea, constipation or abdominal pain. GENITOURINARY: No dysuria or flank pain. MUSCULOSKELETAL: Left ankle pain. No muscle cramps or joint swelling. HEMATOLOGIC: Positive for easy bruising but no previous transfusion reaction or blood clots. NEUROLOGIC: No syncope, paresthesias or seizures. PHYSICAL EXAMINATION: VITAL SIGNS: Blood pressure 113/51, heart rate 56, respiratory rate 20, temperature 97.2, oxygen saturation 96%. GENERAL: Ms. Wellington is an 87 year-old female in no active distress currently. HEENT: Head is normocephalic and atraumatic. Eyes: Pupils are equal and reactive. Nose: No drainage. Throat: Moist buccal mucosa. NECK: Supple. Midline trachea. No jugular venous distention. CHEST: Symmetrical with equal rise and fall of the chest with inspiration and expiration. Lung sounds are clear to auscultation bilaterally. CARDIOVASCULAR: Regular rate and rhythm. Normal S1 and S2. ABDOMEN: Soft. Positive bowel sounds. No tenderness to palpation. GENITOURINARY: Exam is deferred. EXTREMITIES: Lower extremities with left ankle which is in a splint. Toes are visible. Capillary refill is less than 2 seconds. Warm to the touch. She is able to feel me touch her toes at this time as well. NEUROLOGIC: The patient is alert and oriented. Moves all extremities. Extraocular movements are intact although she does have dementia. LABORATORY: Labs have not been done, but x-rays support the bimalleolar fracture with improvement once it was reduced. ASSESSMENT: 1. Bimalleolar ankle fracture status post reduction, 2, Hypertension, controlled. 3. Hypothyroidism. 4. Dementia. PLAN: At this time Dr. Gutierrez has been consulted for surgical intervention. He plans on doing that tomorrow so I will order his preoperative orders at this time. Will get some baseline labs as well and restart home medications once they are verified. Postoperative will have DVT prophylaxis as well as GI ulcer prophylaxis as well. Anticipate the patient will need rehab postsurgical hospitalization. #[id number] [facility]ENTERLuis
[2017-11-06] MEDS ORDERED: SODIUM CHLORIDE 0.9% (FLUSH) 10 ML SYG IV PRN (15:30)
[2017-11-06] MEDS ORDERED: IV SET AND CAP CHANGE INJ INJ SCH (15:30)
--- NOTE | 2017-11-06 16:21 | RAD ---
EXAM DESCRIPTION: Chest,1 View CLINICAL HISTORY: z01.811 preop COMPARISON: None available Findings: Single upright portable frontal view the chest. Calcific atherosclerosis noted of the aortic arch. Cardiac silhouette and pulmonary vascularity are within normal limits. Minimal opacity in the left lung base most likely secondary to subsegmental atelectasis. Otherwise, lungs are clear without focal consolidative infiltrates. No pleural effusion. No pneumothorax. Impression: Minimal atelectasis in the left lung base. Otherwise, lungs are clear without focal consolidative infiltrates. Electronically signed by: Lonny Johnson MD 11/06/2017 4:19 PM CDT
[2017-11-06] MEDS ORDERED: POTASSIUM CHLORIDE 20 MEQ TAB ONE (19:32)
[2017-11-06] MEDS ORDERED: NON-FORMULARY MEDICATION 1 EA MIS (Potassium Chloride [Potassium Chloride Er] 20 MEQ) PO SCH (21:00)
[2017-11-06] MEDS: LATANOPROST 0.005% OPTH SOL 2.5 ML BTTL BOTH_EYES SCH (21:11)
[2017-11-06] MEDS: TIMOLOL MALEATE OPHTH SCH (21:11)
--- NOTE | 2017-11-07 08:31 | CT ---
EXAM DESCRIPTION: CT left ankle CLINICAL HISTORY: Fracture dislocation. Ankle pain and swelling COMPARISON: None Available. TECHNIQUE: Spiral CT with multiplanar reformatted images. 3-D reconstructions This exam was performed according to our departmental dose-optimization program, which includes automated exposure control, adjustment of the mA and/or kV according to patient size and/or use of iterative reconstruction technique. FINDINGS: Fracture dislocation. Oblique fracture across the distal fibular metaphysis with a few tiny comminuted fragments. Anterior displacement of the fibular shaft relative to the distal fragment by 1.2 cm. There is an adjacent fracture of the anterior lateral tibial epiphysis, a shear fracture fragment which measures about 1.5 x 1 x 1 cm, displaced from the remainder of the tibial epiphysis anteriorly by about 0.7 cm. Posterior tibial malleolar fracture with impaction/proximal displacement relative to the remainder of the tibial plafond by about 5 mm. Mild comminution. Lateral displacement of the talus in the ankle mortise with widening of the medial tibiotalar joint space up to 1.3 cm. Thin flake avulsion fragments in the medial tibiotalar joint space from avulsion at deltoid ligament/capsular attachments. Pre-existing chronic osteochondral lesion of the medial talar dome with subchondral sclerosis and minimal cystic change number operator about an 8 x 8 mm region. No pre-existing osteochondral lesion elsewhere in the ankle No fracture of the talus, calcaneus or other tarsal bones. No fracture of the visualized metatarsals. IMPRESSION: Fracture dislocation of the ankle. See above details Electronically signed by: Sanjay Venegas MD 11/07/2017 8:30 AM CDT
[2017-11-07] MEDS ORDERED: NITROGLYCERIN 2% 1 GM UD TOP ONE (09:00)
[2017-11-07] MEDS ORDERED: PROPOFOL 200 MG/20 ML VIAL IV ONE (09:00)
[2017-11-07] MEDS ORDERED: ceFAZolin SODIUM 1 GM VIAL ONE ×4 (09:00→19:48)
[2017-11-07] MEDS: amLODIPine BESYLATE 5 MG TAB PO SCH (09:27)
[2017-11-07] MEDS: LEVOTHYROXINE SODIUM 0.1 MG TAB PO SCH (09:27)
[2017-11-07] MEDS: METOPROLOL SUCCINATE XL 25 MG TAB PO SCH (09:27)
[2017-11-07] MEDS: LACTATED RINGERS 1,000 ML IVS PRN ×3 (09:27→20:05)
[2017-11-07] MEDS: POTASSIUM CHLORIDE 20 MEQ TAB PO SCH ×2 (09:41→16:10)
[2017-11-07] MEDS: HCTZ 25 MG/TRIAMTERENE 37.5 MG 1 EA CAP PO SCH (09:41)
[2017-11-07] MEDS: NON-FORMULARY MEDICATION 1 EA MIS (Donepezil Hydrochloride [Donepezil Hcl] 23 MG) PO SCH (09:41)
[2017-11-07] MEDS: CALCIUM CARBONATE-VITAMIN D 500 MG TAB PO SCH (09:41)
[2017-11-07] MEDS: LATANOPROST 0.005% OPTH SOL 2.5 ML BTTL BOTH_EYES SCH ×2 (10:28→21:25)
[2017-11-07] MEDS ORDERED: BUPIVACAINE 0.25% W/EPI 50 ML VIAL INJ ONE (11:09)
[2017-11-07] MEDS ORDERED: VANCOMYCIN HCL INJ 1,000 MG VIAL IVPB ONE ×2 (11:10→11:26)
[2017-11-07] MEDS ORDERED: LIDOCAINE 1% W/ EPINEPHRINE 20 ML VIAL INJ ONE (11:10)
--- NOTE | 2017-11-07 11:13 | CONS ---
DATE OF CONSULTATION: 11/07/17 CHIEF COMPLAINT: Left ankle pain. HISTORY OF PRESENT ILLNESS: Ms. Wellington is an 87-year-old female with a history of a twisting injury that occurred on the day of presentation. Ms. Wellington was seen in the Emergency Room and x-rays revealed a fracture of the ankle. She was admitted to the hospitalist service. Ms. Wellington complains of pain in the ankle without radiation or neurologic symptoms. PAST MEDICAL HISTORY: 1. Hypertension. 2. Dementia. 3. Hypothyroidism. PAST SURGICAL HISTORY: 1. Knee arthroscopy. 2. Appendectomy. 3. Cholecystectomy. 4. Hysterectomy. MEDICATIONS: Please see the verified EMR. ALLERGIES: BETA BLOCKERS, SADAF INHIBITORS. SOCIAL HISTORY: The patient does not drink, smoke or use any illicit drugs. FAMILY HISTORY: None pertinent to today's complaint. REVIEW OF SYSTEMS: Negative except as indicated in the History of Present Illness. PHYSICAL EXAMINATION: VITAL SIGNS: Blood pressure 113/51. Pulse 56. Respirations 20. Temperature 97.2. O2 saturation 96% on room air. MENTAL STATUS: The patient is awake, alert, and is able to give a good history and participate in the physical. The patient is oriented to person, place and time. SKIN: Normal tone and turgor. HEENT: Normocephalic, atraumatic. Pupils equal, round and reactive. Mucosal membranes are moist. NECK: Normal range of motion. No thyromegaly, no lymphadenopathy. CHEST: Normal respiratory excursion. CARDIAC: Regular rate and rhythm. No murmurs, rubs or gallops. MUSCULOSKELETAL: Bilateral upper extremities show full active range of motion without significant pain. She has intact sensation in both extremities. There is no crepitus, no deformity and no outward signs of trauma. The right lower extremity shows no outward signs of trauma. There is no deformity and it is warm and well perfused. Sensation is intact. The left lower extremity shows deformity at the ankle but the skin is intact. She does have some swelling. All compartments of the extremity are soft. There is no deformity proximal to the ankle. Sensation is intact. IMAGING: X-rays show a fracture of the lateral malleolus as well as a small fracture of the posterior malleolus. There is lateral translation of the talus within the mortise. ASSESSMENT: 1. Ankle fracture. PLAN: The plan at this point is for fixation. We have discussed the risks, benefits, and alternatives to that and the patient has given informed consent. #[id number] [facility]
[2017-11-07] MEDS ORDERED: fentaNYL CITRATE INJ 50 MCG/ML AMP ONE (11:20)
[2017-11-07] MEDS ORDERED: LIDOCAINE 2 % GEL 5 ML TUBE TOP ONE (11:20)
[2017-11-07] MEDS ORDERED: SODIUM CHLORIDE 0.9% 250ML 250 ML ONE (11:26)
[2017-11-07] MEDS: CARBOXYMETHYLCELLULOSE SODIUM 0.5% OP SCH (11:40)
[2017-11-07] MEDS ORDERED: ceFAZolin SODIUM 1 GM VIAL INJ ONE (11:50)
[2017-11-07] MEDS ORDERED: BUPIVACAINE 0.25% INJ 30 ML VIAL INJ ONE (13:15)
--- NOTE | 2017-11-07 14:20 | RAD ---
EXAM DESCRIPTION: Ankle,Left 3 Views CLINICAL HISTORY: 87 years, Female, post op COMPARISON: Previous study November 06, 2017 TECHNIQUE: AP/lateral/oblique of the left ankle FINDINGS: Osseous irregularities are seen near the medial malleolus which could be acute or old injury. LESION is favored. There is soft tissue swelling laterally and medially. Plate and screws are seen in the distal fibula. Intact proximal metatarsals. Intact dome of the talus. Lateral view shows no evidence of fracture of the body of the talus or calcaneus. Prominent dorsal calcaneal spurring is seen. No ankle joint narrowing, spurring or effusion. IMPRESSION: Plate and screws in the distal fibula. Electronically signed by: Tarun Basurto MD 11/07/2017 2:19 PM CDT
--- NOTE | 2017-11-07 17:26 | PN ---
SUPERVISING PHYSICIAN: Ramírez Garcia MD DATE: 11/07/17 SUBJECTIVE: The patient is a little bit sore in her ankle. She is postoperative from her ankle surgery this morning and in no distress currently. She is resting well and not requiring a lot of pain medication. OBJECTIVE: VITAL SIGNS: Blood pressure 155/70, heart rate 78, respiratory rate 18. Temperature 97.9. Oxygen saturation 94%. GENERAL: Ms. Wellington is an 87 year-old female in no acute distress. NEUROLOGICAL: The patient is alert. LUNGS: Clear to auscultation bilaterally. CARDIOVASCULAR: Regular rate and rhythm, no murmurs, S1 or S2. ABDOMEN: Soft , positive bowel sounds. LOWER EXTREMITY: Left ankle is in a cast wrapped with Joseph. Capillary refill less than 2 seconds. Toes are warm. ASSESSMENT: 1. Left ankle bimalleolar fracture status post surgical repair. 2. Hypertension. 3. Hypothyroidism. 4. Dementia. PLAN: 1. Will participate in physical therapy postoperative as well as administer pain control. Will monitor her labs and insure that her medical needs are met during her recovery phase. 2. No change in her care at this time. [facility][id number] [facility]
[2017-11-07] MEDS ORDERED: SODIUM CHL 0.9% 50ML MIN-BAG+ 50 ML IVPB ONE (19:47)
[2017-11-07] MEDS ORDERED: ENOXAPARIN SODIUM 30 MG/0.3 ML SYG SUBCU ONE (19:48)
[2017-11-07] MEDS: TIMOLOL MALEATE OPHTH SCH (21:25)
[2017-11-07] MEDS: ceFAZolin SODIUM 1 GM in SODIUM CHL 0.9% 50ML MIN-BAG+ 50 ML IVPB SCH (21:25)
[2017-11-08] MEDS: ENOXAPARIN SODIUM 30 MG/0.3 ML SYG SUBCU SCH ×2 (01:27→14:43)
[2017-11-08] MEDS ORDERED: ceFAZolin SODIUM 1 GM VIAL ONE ×2 (04:53→13:07)
[2017-11-08] MEDS ORDERED: SODIUM CHL 0.9% 50ML MIN-BAG+ 50 ML IVPB ONE ×2 (04:53→13:06)
[2017-11-08] MEDS: ceFAZolin SODIUM 1 GM in SODIUM CHL 0.9% 50ML MIN-BAG+ 50 ML IVPB SCH ×2 (05:30→13:27)
[2017-11-08] MEDS: LEVOTHYROXINE SODIUM 0.1 MG TAB PO SCH (06:04)
[2017-11-08] MEDS: POTASSIUM CHLORIDE 20 MEQ TAB PO SCH ×2 (08:05→16:50)
--- NOTE | 2017-11-08 08:15 | OP ---
DATE OF PROCEDURE: 11/07/17 PREOPERATIVE DIAGNOSIS: 1. Left ankle fracture. POSTOPERATIVE DIAGNOSIS: 1. Left ankle fracture. PROCEDURE: 1. Open reduction internal fixation of left ankle. SURGEON: Brian Gutierrez MD. PIPE FITTER SUPERVISOR MAINTENANCE: Alfonzo Paniagua CST, SA-C. ANESTHESIA: General anesthesia. COMPLICATIONS: None. FINDINGS: Comminuted fracture of the distal fibula and posterior malleolus and osteoporotic bone. INDICATION: Ms. Wellington has a history of a fall that occurred on the day of presentation. She presented to the Emergency Room and x-rays revealed a fracture dislocation. The fracture was reduced and she was splinted and admitted. Following that, I was consulted and we discussed options. After discussing the risks, benefits and alternatives to operative therapy, she gave informed consent. PROCEDURE: The patient was brought to the Operating Room and placed in the supine position. General anesthesia was induced. The patient's leg was sterilely prepped and draped. Following prepping and draping, an incision was made along the lateral border of the fibula. Following that, dissection was carried down to the fibula and periosteum was elevated. The fracture was identified and hematoma was evacuated. The fracture was reduced and the reduction was checked under fluoroscopic imaging. Following that, a plate was applied on the lateral border of the fibula. Locking screws were used given the advanced osteoporotic nature of the bone. Following fixation, the reduction was confirmed in the AP and lateral planes. A mortise view and stress view were used to ensure stability of the ankle. Following that, the wound was very thoroughly irrigated and closed using Nylon suture. Sterile dressings were placed. The patient was placed in a splint, awoken from anesthesia and taken to Recovery. POSTOPERATIVE INSTRUCTIONS: She will be [id number] until signs of healing have occurred. #[id number] [facility]
--- NOTE | 2017-11-08 08:19 | PN ---
DATE: 11/08/17 SUBJECTIVE: Ms. Wellington seems to be doing well. She has no significant pain right now. OBJECTIVE: Afebrile. Vital signs stable. Dressing is clean, dry and intact. ASSESSMENT: Status post open reduction internal fixation of ankle. PLAN: The plan at this point is for her to get up out of bed with therapy. She will be [id number]. #[id number] [facility]
[2017-11-08] MEDS: NON-FORMULARY MEDICATION 1 EA MIS (Donepezil Hydrochloride [Donepezil Hcl] 23 MG) PO SCH (09:00)
[2017-11-08] MEDS: LATANOPROST 0.005% OPTH SOL 2.5 ML BTTL BOTH_EYES SCH ×2 (09:37→21:00)
[2017-11-08] MEDS: METOPROLOL SUCCINATE XL 25 MG TAB PO SCH (09:53)
[2017-11-08] MEDS: amLODIPine BESYLATE 5 MG TAB PO SCH (09:53)
[2017-11-08] MEDS: HCTZ 25 MG/TRIAMTERENE 37.5 MG 1 EA CAP PO SCH (09:53)
[2017-11-08] MEDS: CALCIUM CARBONATE-VITAMIN D 500 MG TAB PO SCH (09:53)
[2017-11-08] MEDS: CARBOXYMETHYLCELLULOSE 0.5% OPHTH SOL 0.4 ML UD BOTH_EYES SCH (11:15)
[2017-11-08] MEDS: CARBOXYMETHYLCELLULOSE SODIUM 0.5% OP SCH (15:23)
--- NOTE | 2017-11-08 20:25 | PN ---
DATE: 11/08/17 SUPERVISING PHYSICIAN: Ramírez Garcia M.D. SUBJECTIVE: The patient is resting in bed. She says her pain is well controlled. She has had no nausea or vomiting. She remains afebrile. OBJECTIVE: VITAL SIGNS: Temperature 97.7, pulse 71, blood pressure 148/82, respirations 18, satting 94% on room air at rest. CHEST: Lungs are clear to auscultation. HEART: Regular rate and rhythm. ABDOMEN: Soft, non-tender. Positive bowel sounds. EXTREMITIES: Left lower extremity has a bulky Joseph bandage wrap in place with toes showing to be pink and warm with brisk capillary refill. NEUROLOGIC: She is alert and oriented times three. LABORATORY: No additional laboratory studies. No additional radiographic studies. ASSESSMENT: 1. Status post day 1 for surgical repair of left ankle bimalleolar fracture with open reduction and internal fixation. 2. Hypertension, stable. 3. Hypothyroidism not currently on supplementation. 4. Dementia. PLAN: Will continue to follow the patient as she continues with her physical therapy rehabilitation. She will be nonweightbearing and all orthopedic needs deferred to Dr. Gutierrez and Physical Therapy. Will anticipate discharging tomorrow to Swing Bed for continued rehabilitation and physical therapy efforts with ultimately discharging to [facility] after approximately 7 days of Swing Bed. Until then, will continue to monitor and treat appropriately. [facility][id number] [facility]
[2017-11-08] MEDS ORDERED: TIMOLOL MALEATE 0.5% OPHTH SCH (21:00)
[2017-11-09] MEDS: ENOXAPARIN SODIUM 30 MG/0.3 ML SYG SUBCU SCH (01:43)
[2017-11-09] MEDS: LEVOTHYROXINE SODIUM 0.1 MG TAB PO SCH (06:32)
[2017-11-09] MEDS: POTASSIUM CHLORIDE 20 MEQ TAB PO SCH (08:01)
[2017-11-09] MEDS ORDERED: SODIUM CHLORIDE 0.9% (FLUSH) 10 ML SYG IV SCH (09:00)
[2017-11-09] MEDS: LATANOPROST 0.005% OPTH SOL 2.5 ML BTTL BOTH_EYES SCH (09:44)
[2017-11-09] MEDS: CALCIUM CARBONATE-VITAMIN D 500 MG TAB PO SCH (09:44)
[2017-11-09] MEDS: METOPROLOL SUCCINATE XL 25 MG TAB PO SCH (09:44)
[2017-11-09] MEDS: HCTZ 25 MG/TRIAMTERENE 37.5 MG 1 EA CAP PO SCH (09:44)
[2017-11-09] MEDS: amLODIPine BESYLATE 5 MG TAB PO SCH (09:44)
[2017-11-09] MEDS: NON-FORMULARY MEDICATION 1 EA MIS (Donepezil Hydrochloride [Donepezil Hcl] 23 MG) PO SCH (09:45)
[2017-11-09] MEDS: CARBOXYMETHYLCELLULOSE 0.5% OPHTH SOL 0.4 ML UD BOTH_EYES SCH (10:00)
[2017-11-09 12:06] VITALS: BP 150/70; TEMP 98.3; O2SAT 95
--- NOTE | 2017-11-09 17:07 | DS ---
SUPERVISING PHYSICIAN: Ramírez Garcia M.D. DISCHARGE DIAGNOSIS: 1. Status post day 2 for surgical repair of left ankle bimalleolar fracture with open reduction and internal fixation performed by Dr. Brian Gutierrez on 11/07/17. 2. Hypertension, stable. 3. Hypothyroidism on supplementation. 4. Dementia. REASON FOR HOSPITALIZATION: Ms. Wellington is an 87 year-old female patient who on 11/05/17 fell at home in her kitchen. When she tried to stand up she could not bear any weight without significant pain. She noted swelling was significantly increased on the morning of 11/06/17. She then presented to the Emergency Room where on x-ray she was found to have a bimalleolar fracture of the left ankle with displacement. It was reduced in the Emergency Room and Dr. Gutierrez was consulted who then agreed to complete surgical intervention on 11/07/17 for an open reduction and internal fixation. The patient was admitted on 11/06/17 on Acute Care. She was taken to surgery on 11/07/17 at which time she had an open reduction and internal fixation of the left ankle. She did well postoperatively and was followed through her Acute Care stay at which time she was doing well, but it was felt due to her advanced age and living conditions, she lives with her , that she would benefit from at least additional rehabilitation efforts through Swing Bed to ensure her safety once discharged. So therefore the patient was admitted to Swing Bed for continued rehabilitation efforts. She was admitted in stable condition. LABORATORY: Hemoglobin on admission was 12.6, hematocrit 37.2, at discharge was 11.5 and 34.5, platelet count 218,000. Coagulation studies showed normal PT and PTT. Chemistries were normal on admission. TSH was elevated at 7.18, free T4 was 0.97. Urinalysis was within normal limits. No microbiology was submitted. RADIOLOGY: She did have an ankle x-ray and a chest x-ray. The ankle x-ray per radiology interpretation in the E. R. preoperatively showed displaced fractures of the left distal fibula and posterior tibia without any convincing evidence of medial malleolar fracture. There is disruption of the ankle mortise and lateral displacement and dislocation of the talus relative to the distal tibia suggesting ligamentous injury. Well -corticated osseous bodies in the medial malleolus region which could represent accessory centers of ossification versus sequelae of remote prior trauma. Additional findings include a lower extremity CT per radiology interpretation there was noted fracture dislocation of the ankle. Please see that report for details. She had a chest x-ray as well and per radiology interpretation showed minimal atelectasis in the left lung, otherwise lungs were clear without consolidative infiltrates. She had an ankle x-ray status post reduction in the E. R. that showed improved alignment of the distal fibular fracture fragments. Disruption of the ankle mortise with widening of the medial joint space. She also had a postoperative x-ray. Please see that report for details. PROCEDURES: Open reduction and internal fixation of 11/07/17 of the left ankle fracture performed by Dr. Brian Gutierrez, orthopedic surgeon. Please see that note for full details. HOSPITAL COURSE: Ms. Wellington was admitted on 11/06/17 for a left ankle fracture for anticipation of surgery for open reduction and internal fixation that was to be performed on 11/07/17. She did have surgery on 11/07/17 which was performed by Dr. Brian Gutierrez. There were no complications postoperatively and the patient was followed through her hospitalization as well as her physical therapy efforts. She had good pain control and was participating with Physical Therapy, but needed additional physical therapy days to ensure safety once discharged. PLAN: The patient is going to be now admitted to Swing Bed for ongoing physical therapy and rehabilitation efforts. Her diet will be regular diet as tolerated. Medications are resumed as previous to hospitalization. She will be on DVT prophylaxis as per protocol. Activity as tolerated. Walk with a walker as per physical therapy. No weightbearing on the left ankle. She may shower but no tub baths once the bandage comes off. She will need followup once discharged with Dr. Gutierrez with anticipation of hopefully discharging to [facility]. The patient was discharged from Acute Care and admitted to Swing Bed in stable and improved condition. #[id number] [facility]
== END 2017-11-09 11:55 | disposition swing bed (61) | DRG 494 ==
LOC: ER 10:34 → MS 13:02 → OBSVTOIN 13:02
PROVIDERS: ADMIT Nurse Practitioner; ATTEND Nurse Practitioner Family
PROC: 0QSKXZZ Reposition Left Fibula, External Approach (ICD-10-PCS; 2017-11-06)
PROC: 0QSHXZZ Reposition Left Tibia, External Approach (ICD-10-PCS; 2017-11-06)
PROC: 0QSH04Z Reposition Left Tibia with Internal Fixation Device, Open Approach (ICD-10-PCS; 2017-11-07)
PROC: 0QSK04Z Reposition Left Fibula with Internal Fixation Device, Open Approach (ICD-10-PCS; principal; 2017-11-07 10:15)
DX: S82.842A Displaced bimalleolar fracture of left lower leg, initial encounter for closed fracture (principal); M81.0 Age-related osteoporosis without current pathological fracture; I10 Essential (primary) hypertension; I25.10 Atherosclerotic heart disease of native coronary artery without angina pectoris; F03.90 Unspecified dementia, unspecified severity, without behavioral disturbance, psychotic disturbance, mood disturbance, and anxiety; K21.9 Gastro-esophageal reflux disease without esophagitis; E03.9 Hypothyroidism, unspecified; X50.9XXA Other and unspecified overexertion or strenuous movements or postures, initial encounter; Y92.000 Kitchen of unspecified non-institutional (private) residence as the place of occurrence of the external cause; Z88.8 Allergy status to other drugs, medicaments and biological substances; Z79.899 Other long term (current) drug therapy

== ENCOUNTER 2017-11-09 12:17 | Inpatient (IN) | payer MEDICARE, OTHER ==
--- NOTE | 2017-11-09 12:17 | HP ---
SUPERVISING PHYSICIAN: Ramírez Garcia M.D. REASON FOR SWING BED ADMISSION: Status post left ankle fracture with open reduction and internal fixation. HISTORY OF PRESENT ILLNESS: Ms. Wellington is an 87 year-old female patient who on 11/05/17 fell at home in her kitchen. When she tried to stand up she could not bear any weight without significant pain. She noted swelling was significantly increased on the morning of 11/06/17. She then presented to the Emergency Room where on x-ray she was found to have a bimalleolar fracture of the left ankle with displacement. It was reduced in the Emergency Room and Dr. Gutierrez was consulted who then agreed to complete surgical intervention on 11/07/17 for an open reduction and internal fixation. The patient was admitted on 11/06/17 on Acute Care. She was taken to surgery on 11/07/17 at which time she had an open reduction and internal fixation of the left ankle. She did well postoperatively and was followed through her Acute Care stay at which time she was doing well, but it was felt due to her advanced age and living conditions, she lives with her , that she would benefit from at least additional rehabilitation efforts through Swing Bed to ensure her safety once discharged. So therefore the patient was admitted to Swing Bed for continued rehabilitation efforts. She was admitted in stable condition. PAST MEDICAL HISTORY: 1. Hypertension. 2. Dementia. 3. Hypothyroidism. PAST SURGICAL HISTORY: 1. As above, status post open reduction and internal fixation of left ankle fracture by Dr. Gutierrez on 11/07/17. 2. Right knee arthroscopy. 3. Appendectomy. 4. Cholecystectomy. 5. Hysterectomy. CURRENT MEDICATIONS: 1. Triamterene/Hydrochlorothiazide 37.5/25 mg one daily. 2. Timolol maleate ophthalmic drops 0.5% at bedtime. 3. Potassium chloride extended release 20 mg b.i.d. 4. Ocuvite 1 tablet daily. 5. Metoprolol succinate extended release 25 mg daily. 6. Synthroid 0.1 mg daily. 7. Xalatan ophthalmic drops 0.005% one drop both eyes b.i.d. 8. Ferrous gluconate 1 daily. 9. Donepezil 23 mg daily. 10. Vitamin B12 2500 mcg IM monthly. 11. Refresh Tears 0.5 mg ophthalmic drops daily. 12. Calcium supplement 1 tablet daily. 13. Norvasc 10 mg daily. ALLERGIES: JOSEPH INHIBITORS, BETA ADRENERGIC BLOCKERS. FAMILY HISTORY: Hypertension and cardiovascular disease. SOCIAL HISTORY: The patient lives in [place] with her . She has never drank alcohol and has never smoked. She does not use illicit drugs. REVIEW OF SYSTEMS: CONSTITUTIONAL: No fever or chills. No recent weight loss or weight gain. HEENT: No headaches, vision changes, ear pain, nasal congestion or sore throat. RESPIRATORY: No cough, hemoptysis or pleuritic chest pains. CARDIOVASCULAR: No chest pains, palpitations or peripheral edema. GASTROINTESTINAL: No nausea, vomiting, diarrhea, constipation or abdominal pains. GENITOURINARY: No dysuria or flank pain. MUSCULOSKELETAL: As noted in history of present illness. Surgical dressing in place on the left ankle for open reduction and internal fixation that was performed on 11/07/17. HEMATOLOGIC: Positive for easy bruising but no previous transfusion reactions or blood clots. NEUROLOGIC: No syncope, paresthesia or seizures. PHYSICAL EXAMINATION: VITAL SIGNS: Temperature 98.3, pulse 68, blood pressure 150/70, respirations 18 , satting 95% on room air. Admission weight 57.9 kg. GENERAL: The patient is resting in the chair. Appears to be comfortable, in no acute distress with good pain control. She is alert and oriented times three. HEENT: Tympanic membranes are clear bilaterally. Oropharynx is pink and moist without any lesions. NECK: Supple, non-tender with full range of motion. No jugular venous distention. CHEST: Clear to auscultation bilaterally without any rhonchi, wheezing or rales. CARDIOVASCULAR: Regular rate and rhythm without appreciable murmurs, gallops, or rubs. ABDOMEN: Soft, non-tender with positive bowel sounds. EXTREMITIES: Left lower extremity has an Joseph bandage and splint in place postoperative with capillary refill distally strong and brisk with no reported paresthesias. NEUROLOGIC: She is alert and oriented times three. LABORATORY: No laboratory. No radiographic studies submitted on admission to Swing Bed. ASSESSMENT: 1. Status post day 2 for surgical repair of left ankle bimalleolar fracture with open reduction and internal fixation performed by Dr. Brian Gutierrez on 11/07/17. 2. Hypertension, stable. 3. Hypothyroidism on supplementation. 4. Dementia. PLAN: The plan is to admit the patient to Swing Bed for ongoing physical therapy and rehabilitation in efforts to ensure her safety once home. She does live with her but he is unable to provide any significant assistance as she will be nonweightbearing on the left leg. Will continue with physical therapy. Will resume her home medications. She will be on DVT prophylaxis as per protocol. Will anticipate her length of stay to be at least 3 to 7 days once she has met her goals. Currently the discharge planning is to hopefully discharge her to [facility]. Until then, will continue to monitor and treat appropriately. #[id number] [facility]
[2017-11-09] MEDS ORDERED: MAGNESIUM HYDROXIDE 30 ML UD PO PRN (12:29)
[2017-11-09] MEDS ORDERED: ACETAMINOPHEN 500 MG TAB PO PRN (12:29)
[2017-11-09] MEDS ORDERED: SODIUM PHOS/BIPHOS ENEMA ADULT 133 ML BTTL PR PRN (12:29)
--- NOTE | 2017-11-09 12:33 | PCM.CORE ---
Physician DVT/VTE - Nurse DVT Assessment & Total Each Risk Factor Represents 5 Points: Hip,Pelvis,leg Fx <1month Each Risk Factor Represents 3 Points: Age over 75 years Each Risk Factor Represents 2 Points: Immoblizing Cast <1 month Each Risk Factor Represents 1 Point: Hx Major Surgery <1month DVT Assessment Score: 11 - 5 or more Very High Risk Treatments: Early Ambulation *, Sequential Compression Device Pharmacological: Enoxaparin 40mg SQ Daily
--- NOTE | 2017-11-09 18:07 | PN ---
DATE: 11/09/17 SUBJECTIVE: She is doing pretty well. She is up to a chair and comfortable. OBJECTIVE: She is afebrile. Vital signs are stable. Wound is clean. There are no signs or symptoms of infection. ASSESSMENT: 1. Status post open reduction and internal fixation of ankle. PLAN: At this point, she has been transitioned into Swing Bed status and she will continue on with nonweightbearing. #[id number] [facility]
[2017-11-09] MEDS ORDERED: NON-FORMULARY MEDICATION 1 EA MIS (Potassium Chloride [Potassium Chloride Er] 20 MEQ) PO SCH (21:00)
[2017-11-09] MEDS ORDERED: TIMOLOL MALEATE 0.5% OPHTH SCH (21:00)
[2017-11-09] MEDS ORDERED: POTASSIUM CHLORIDE 20 MEQ TAB ONE (21:03)
[2017-11-09] MEDS: TEMAZEPAM 15 MG CAP PO PRN (21:07)
[2017-11-09] MEDS: LATANOPROST 0.005% OPTH SOL 2.5 ML BTTL BOTH_EYES SCH (21:10)
[2017-11-10] MEDS: LEVOTHYROXINE SODIUM 0.1 MG TAB PO SCH (06:54)
[2017-11-10] MEDS: CARBOXYMETHYLCELLULOSE 0.5% OPHTH SOL 0.4 ML UD BOTH_EYES SCH (10:50)
[2017-11-10] MEDS: DOCUSATE SODIUM 100 MG CAP PO SCH (10:51)
[2017-11-10] MEDS: METOPROLOL SUCCINATE XL 25 MG TAB PO SCH (10:51)
[2017-11-10] MEDS: HCTZ 25 MG/TRIAMTERENE 37.5 MG 1 EA CAP PO SCH (10:51)
[2017-11-10] MEDS: amLODIPine BESYLATE 5 MG TAB PO SCH (10:51)
[2017-11-10] MEDS: ENOXAPARIN SODIUM 40 MG/0.4 ML SYG SUBCU SCH (10:51)
[2017-11-10] MEDS: MULTIPLE VITAMIN 1 EA TAB PO SCH (10:51)
[2017-11-10] MEDS: LATANOPROST 0.005% OPTH SOL 2.5 ML BTTL BOTH_EYES SCH ×2 (10:52→20:53)
[2017-11-10] MEDS: HYDROcodone 5MG/APAP 325MG 1 EA TAB PO PRN ×2 (12:09→20:58)
[2017-11-10] MEDS: NON-FORMULARY MEDICATION 1 EA MIS (Donepezil Hydrochloride [Donepezil Hcl] 23 MG) PO SCH (14:46)
[2017-11-10] MEDS: POTASSIUM CHLORIDE 20 MEQ TAB PO SCH (17:02)
[2017-11-10] MEDS: TEMAZEPAM 15 MG CAP PO PRN (20:53)
[2017-11-10] MEDS: TIMOLOL MALEATE 0.5% BOTH_EYES SCH (20:53)
[2017-11-11] MEDS: LEVOTHYROXINE SODIUM 0.1 MG TAB PO SCH (06:01)
[2017-11-11] MEDS: POTASSIUM CHLORIDE 20 MEQ TAB PO SCH ×2 (07:42→16:26)
[2017-11-11] MEDS: DOCUSATE SODIUM 100 MG CAP PO SCH (08:09)
[2017-11-11] MEDS: NON-FORMULARY MEDICATION 1 EA MIS (Donepezil Hydrochloride [Donepezil Hcl] 23 MG) PO SCH (08:09)
[2017-11-11] MEDS: MULTIPLE VITAMIN 1 EA TAB PO SCH (08:10)
[2017-11-11] MEDS: ENOXAPARIN SODIUM 40 MG/0.4 ML SYG SUBCU SCH (08:10)
[2017-11-11] MEDS: amLODIPine BESYLATE 5 MG TAB PO SCH (08:10)
[2017-11-11] MEDS: METOPROLOL SUCCINATE XL 25 MG TAB PO SCH (08:11)
[2017-11-11] MEDS: LATANOPROST 0.005% OPTH SOL 2.5 ML BTTL BOTH_EYES SCH ×2 (08:12→20:34)
[2017-11-11] MEDS: HCTZ 25 MG/TRIAMTERENE 37.5 MG 1 EA CAP PO SCH (08:15)
[2017-11-11] MEDS: CARBOXYMETHYLCELLULOSE 0.5% OPHTH SOL 0.4 ML UD BOTH_EYES SCH (08:15)
[2017-11-11] MEDS: TIMOLOL MALEATE 0.5% BOTH_EYES SCH (20:34)
[2017-11-11] MEDS: HYDROcodone 5MG/APAP 325MG 1 EA TAB PO PRN (20:43)
[2017-11-11] MEDS: TEMAZEPAM 15 MG CAP PO PRN (20:43)
[2017-11-12] MEDS: LEVOTHYROXINE SODIUM 0.1 MG TAB PO SCH (05:59)
[2017-11-12] MEDS: POTASSIUM CHLORIDE 20 MEQ TAB PO SCH ×2 (07:10→16:17)
[2017-11-12] MEDS: DOCUSATE SODIUM 100 MG CAP PO SCH (08:00)
[2017-11-12] MEDS: HCTZ 25 MG/TRIAMTERENE 37.5 MG 1 EA CAP PO SCH (08:00)
[2017-11-12] MEDS: amLODIPine BESYLATE 5 MG TAB PO SCH (08:00)
[2017-11-12] MEDS: MULTIPLE VITAMIN 1 EA TAB PO SCH (08:00)
[2017-11-12] MEDS: METOPROLOL SUCCINATE XL 25 MG TAB PO SCH (08:00)
[2017-11-12] MEDS: ENOXAPARIN SODIUM 40 MG/0.4 ML SYG SUBCU SCH (08:01)
[2017-11-12] MEDS: LATANOPROST 0.005% OPTH SOL 2.5 ML BTTL BOTH_EYES SCH ×2 (08:01→20:40)
[2017-11-12] MEDS: CARBOXYMETHYLCELLULOSE 0.5% OPHTH SOL 0.4 ML UD BOTH_EYES SCH (08:01)
[2017-11-12] MEDS: NON-FORMULARY MEDICATION 1 EA MIS (Donepezil Hydrochloride [Donepezil Hcl] 23 MG) PO SCH (08:02)
[2017-11-12] MEDS: HYDROcodone 5MG/APAP 325MG 1 EA TAB PO PRN (08:07)
[2017-11-12] MEDS: TIMOLOL MALEATE 0.5% BOTH_EYES SCH (20:40)
[2017-11-13] MEDS: LEVOTHYROXINE SODIUM 0.1 MG TAB PO SCH (06:14)
[2017-11-13] MEDS: POTASSIUM CHLORIDE 20 MEQ TAB PO SCH ×2 (07:31→17:01)
--- NOTE | 2017-11-13 08:08 | PN ---
DATE: 11/13/17 SUBJECTIVE: Ms. Wellington is doing pretty well today. She is already up to a chair and her pain is well controlled. OBJECTIVE: Afebrile. Vital signs stable. Wound is clean. There are no signs or symptoms of infection. ASSESSMENT: Status post open reduction internal fixation of ankle. PLAN: She will continue with physical therapy for [id number]. #[id number] [facility]
[2017-11-13] MEDS: HYDROcodone 5MG/APAP 325MG 1 EA TAB PO PRN (08:42)
[2017-11-13] MEDS: NON-FORMULARY MEDICATION 1 EA MIS (Donepezil Hydrochloride [Donepezil Hcl] 23 MG) PO SCH (09:00)
[2017-11-13] MEDS: ENOXAPARIN SODIUM 40 MG/0.4 ML SYG SUBCU SCH (09:00)
[2017-11-13] MEDS: METOPROLOL SUCCINATE XL 25 MG TAB PO SCH (09:00)
[2017-11-13] MEDS: DOCUSATE SODIUM 100 MG CAP PO SCH (09:00)
[2017-11-13] MEDS: HCTZ 25 MG/TRIAMTERENE 37.5 MG 1 EA CAP PO SCH (09:00)
[2017-11-13] MEDS: MULTIPLE VITAMIN 1 EA TAB PO SCH (09:00)
[2017-11-13] MEDS: amLODIPine BESYLATE 5 MG TAB PO SCH (09:00)
[2017-11-13] MEDS: CARBOXYMETHYLCELLULOSE 0.5% OPHTH SOL 0.4 ML UD BOTH_EYES SCH (09:01)
[2017-11-13] MEDS: LATANOPROST 0.005% OPTH SOL 2.5 ML BTTL BOTH_EYES SCH ×2 (09:03→20:31)
[2017-11-13] MEDS ORDERED: DONEPEZIL HCL 5 MG TAB ONE (19:52)
[2017-11-13] MEDS: TIMOLOL MALEATE 0.5% BOTH_EYES SCH (20:31)
[2017-11-13] MEDS: DONEPEZIL HCL 5 MG TAB PO SCH (20:32)
[2017-11-14] MEDS: TEMAZEPAM 15 MG CAP PO PRN (00:01)
[2017-11-14] MEDS: LEVOTHYROXINE SODIUM 0.1 MG TAB PO SCH (06:16)
[2017-11-14] MEDS: POTASSIUM CHLORIDE 20 MEQ TAB PO SCH ×2 (07:49→17:11)
[2017-11-14] MEDS ORDERED: DONEPEZIL HCL 5 MG TAB PO SCH (09:00)
[2017-11-14] MEDS: ENOXAPARIN SODIUM 40 MG/0.4 ML SYG SUBCU SCH (09:26)
[2017-11-14] MEDS: DONEPEZIL HCL 5 MG TAB PO SCH (09:27)
[2017-11-14] MEDS: amLODIPine BESYLATE 5 MG TAB PO SCH (09:27)
[2017-11-14] MEDS: METOPROLOL SUCCINATE XL 25 MG TAB PO SCH (09:27)
[2017-11-14] MEDS: HCTZ 25 MG/TRIAMTERENE 37.5 MG 1 EA CAP PO SCH (09:27)
[2017-11-14] MEDS: DOCUSATE SODIUM 100 MG CAP PO SCH (09:28)
[2017-11-14] MEDS: NON-FORMULARY MEDICATION 1 EA MIS (Donepezil Hydrochloride [Donepezil Hcl] 23 MG) PO SCH (09:28)
[2017-11-14] MEDS: LATANOPROST 0.005% OPTH SOL 2.5 ML BTTL BOTH_EYES SCH ×2 (10:42→21:04)
[2017-11-14] MEDS: CARBOXYMETHYLCELLULOSE 0.5% OPHTH SOL 0.4 ML UD BOTH_EYES SCH (10:42)
[2017-11-14] MEDS: MULTIPLE VITAMIN 1 EA TAB PO SCH (10:42)
--- NOTE | 2017-11-14 10:50 | PN ---
SUPERVISING PHYSICIAN: Sanjay Kaur MD DATE: 11/14/17 SUBJECTIVE: Ms. Wellington has not been eating well lately. She continues to be fairly weak. There are still some issues with her discharge planning that her children and [employer] are working out. OBJECTIVE: VITAL SIGNS: Afebrile. Heart rate 85. Blood pressure 132/70. Respiratory rate 17. O2 saturation 95%. GENERAL: She is sitting up in her chair. She is in no acute distress. NEUROLOGIC: She is awake and pleasant. ASSESSMENT: 1. Status post operative day 7 for surgical repair of left ankle bimalleolar fracture with open reduction and internal fixation performed by Dr. Brian Gutierrez on 11/07. 2. Hypertension, stable. 3. Hypothyroidism. 4. Dementia. PLAN: We will continue present supportive care. Again, the family is deciding where they would like her to be discharged whether that be a [facility] [place] or to [facility] here. We are awaiting a bed at [facility] at this time as they are full. Hopeful for discharge on Saturday. The patient has not been getting her Aricept because she is on the 23 mg dosing and the family had not brought her medications in, so I have put her on 20 mg of Aricept until it is available. She will continue with physical therapy and conditioning until her discharge facility is in place. We will continue to monitor the patient closely and follow as needed. #[id number] [facility]
[2017-11-14] MEDS: TIMOLOL MALEATE 0.5% BOTH_EYES SCH (21:04)
[2017-11-15] MEDS: LEVOTHYROXINE SODIUM 0.1 MG TAB PO SCH (06:02)
[2017-11-15] MEDS ORDERED: DONEPEZIL HCL 5 MG TAB ONE (07:23)
[2017-11-15] MEDS: POTASSIUM CHLORIDE 20 MEQ TAB PO SCH ×2 (07:52→17:15)
[2017-11-15] MEDS: DONEPEZIL HCL 5 MG TAB PO SCH (09:09)
[2017-11-15] MEDS: ENOXAPARIN SODIUM 40 MG/0.4 ML SYG SUBCU SCH (09:09)
[2017-11-15] MEDS: amLODIPine BESYLATE 5 MG TAB PO SCH (09:10)
[2017-11-15] MEDS: NON-FORMULARY MEDICATION 1 EA MIS (Donepezil Hydrochloride [Donepezil Hcl] 23 MG) PO SCH (09:10)
[2017-11-15] MEDS: METOPROLOL SUCCINATE XL 25 MG TAB PO SCH (09:10)
[2017-11-15] MEDS: MULTIPLE VITAMIN 1 EA TAB PO SCH (09:10)
[2017-11-15] MEDS: CARBOXYMETHYLCELLULOSE 0.5% OPHTH SOL 0.4 ML UD BOTH_EYES SCH (09:10)
[2017-11-15] MEDS: DOCUSATE SODIUM 100 MG CAP PO SCH (09:10)
[2017-11-15] MEDS: HCTZ 25 MG/TRIAMTERENE 37.5 MG 1 EA CAP PO SCH (09:10)
[2017-11-15] MEDS: LATANOPROST 0.005% OPTH SOL 2.5 ML BTTL BOTH_EYES SCH ×2 (09:11→20:35)
[2017-11-15] MEDS: TIMOLOL MALEATE 0.5% BOTH_EYES SCH (20:35)
[2017-11-16] MEDS: LEVOTHYROXINE SODIUM 0.1 MG TAB PO SCH (06:06)
[2017-11-16] MEDS ORDERED: DONEPEZIL HCL 5 MG TAB ONE (07:19)
[2017-11-16] MEDS: POTASSIUM CHLORIDE 20 MEQ TAB PO SCH ×2 (07:42→17:14)
[2017-11-16] MEDS: DOCUSATE SODIUM 100 MG CAP PO SCH (09:19)
[2017-11-16] MEDS: DONEPEZIL HCL 5 MG TAB PO SCH (09:19)
[2017-11-16] MEDS: METOPROLOL SUCCINATE XL 25 MG TAB PO SCH (09:20)
[2017-11-16] MEDS: MULTIPLE VITAMIN 1 EA TAB PO SCH (09:20)
[2017-11-16] MEDS: NON-FORMULARY MEDICATION 1 EA MIS (Donepezil Hydrochloride [Donepezil Hcl] 23 MG) PO SCH (09:20)
[2017-11-16] MEDS: ENOXAPARIN SODIUM 40 MG/0.4 ML SYG SUBCU SCH (09:21)
[2017-11-16] MEDS: amLODIPine BESYLATE 5 MG TAB PO SCH (09:21)
[2017-11-16] MEDS: HCTZ 25 MG/TRIAMTERENE 37.5 MG 1 EA CAP PO SCH (09:24)
[2017-11-16] MEDS: CARBOXYMETHYLCELLULOSE 0.5% OPHTH SOL 0.4 ML UD BOTH_EYES SCH (09:50)
[2017-11-16] MEDS: LATANOPROST 0.005% OPTH SOL 2.5 ML BTTL BOTH_EYES SCH ×2 (09:50→20:41)
[2017-11-16] MEDS: TIMOLOL MALEATE 0.5% BOTH_EYES SCH (20:41)
[2017-11-17] MEDS: LEVOTHYROXINE SODIUM 0.1 MG TAB PO SCH (06:05)
[2017-11-17] MEDS: POTASSIUM CHLORIDE 20 MEQ TAB PO SCH ×2 (07:55→17:34)
[2017-11-17] MEDS: NON-FORMULARY MEDICATION 1 EA MIS (Donepezil Hydrochloride [Donepezil Hcl] 23 MG) PO SCH (08:57)
[2017-11-17] MEDS: CARBOXYMETHYLCELLULOSE 0.5% OPHTH SOL 0.4 ML UD BOTH_EYES SCH (08:57)
[2017-11-17] MEDS: HCTZ 25 MG/TRIAMTERENE 37.5 MG 1 EA CAP PO SCH (08:57)
[2017-11-17] MEDS: DOCUSATE SODIUM 100 MG CAP PO SCH (08:57)
[2017-11-17] MEDS: DONEPEZIL HCL 5 MG TAB PO SCH (08:57)
[2017-11-17] MEDS: ENOXAPARIN SODIUM 40 MG/0.4 ML SYG SUBCU SCH (08:57)
[2017-11-17] MEDS: METOPROLOL SUCCINATE XL 25 MG TAB PO SCH (08:57)
[2017-11-17] MEDS: MULTIPLE VITAMIN 1 EA TAB PO SCH (08:57)
[2017-11-17] MEDS: LATANOPROST 0.005% OPTH SOL 2.5 ML BTTL BOTH_EYES SCH ×2 (08:57→20:49)
[2017-11-17] MEDS: amLODIPine BESYLATE 5 MG TAB PO SCH (08:59)
[2017-11-17] MEDS: TIMOLOL MALEATE 0.5% BOTH_EYES SCH (20:49)
[2017-11-18] MEDS: LEVOTHYROXINE SODIUM 0.1 MG TAB PO SCH (06:29)
[2017-11-18] MEDS: ENOXAPARIN SODIUM 40 MG/0.4 ML SYG SUBCU SCH (08:34)
[2017-11-18] MEDS: DONEPEZIL HCL 5 MG TAB PO SCH (08:34)
[2017-11-18] MEDS: LATANOPROST 0.005% OPTH SOL 2.5 ML BTTL BOTH_EYES SCH (08:35)
[2017-11-18] MEDS: DOCUSATE SODIUM 100 MG CAP PO SCH (08:35)
[2017-11-18] MEDS: METOPROLOL SUCCINATE XL 25 MG TAB PO SCH (08:35)
[2017-11-18] MEDS: MULTIPLE VITAMIN 1 EA TAB PO SCH (08:35)
[2017-11-18] MEDS: POTASSIUM CHLORIDE 20 MEQ TAB PO SCH (08:35)
[2017-11-18] MEDS: amLODIPine BESYLATE 5 MG TAB PO SCH (08:40)
[2017-11-18] MEDS: HCTZ 25 MG/TRIAMTERENE 37.5 MG 1 EA CAP PO SCH (08:41)
[2017-11-18] MEDS: NON-FORMULARY MEDICATION 1 EA MIS (Donepezil Hydrochloride [Donepezil Hcl] 23 MG) PO SCH (08:46)
--- NOTE | 2017-11-18 14:03 | DS ---
SUPERVISING PHYSICIAN: Ramírez Garcia MD ADMISSION DIAGNOSIS: 1. Left ankle open reduction internal fixation. 2. Hypertension. 3. Hypothyroidism. 4. Dementia. DISCHARGE DIAGNOSIS: 1. Left ankle open reduction internal fixation. 2. Hypertension. 3. Hypothyroidism. 4. Dementia. HOSPITAL COURSE: This is an 87-year-old female who originally fell at home and broke her ankle. Therefore, she was admitted and Dr. Gutierrez performed a surgical repair. Once this was done, she met criteria for Swing Bed, so she thus was admitted under Swing Bed on 11/09/17. She was participating somewhat in physical therapy, but did not really progress to the extent that she could go home alone. She has been accepted to an long-term acute care facility and therefore will go there in stable condition at this time. Currently, she does not have any complaints and vital signs are acceptable. DISCHARGE DIET: As per usual diet. DISCHARGE ACTIVITY: As per physical therapy at her new facility. FOLLOWUP: Followup appointment Dr. Gutierrez in two weeks. DISCHARGE MEDICATIONS: No new medications. See discharge medication reconciliation record. #[id number] [facility]
[2017-11-18 14:40] VITALS: BP 133/74; TEMP 97.6; O2SAT 95
== END 2017-11-18 13:15 | DRG 561 ==
LOC: UNDOADMIN 12:17 → MS 12:17 → UNDODISIN 11-18 13:15
PROVIDERS: ADMIT Nurse Practitioner Family; ATTEND Nurse Practitioner
DX: S82.842D Displaced bimalleolar fracture of left lower leg, subsequent encounter for closed fracture with routine healing (principal); I10 Essential (primary) hypertension; F03.90 Unspecified dementia, unspecified severity, without behavioral disturbance, psychotic disturbance, mood disturbance, and anxiety; E03.9 Hypothyroidism, unspecified; Z98.890 Other specified postprocedural states; Z88.8 Allergy status to other drugs, medicaments and biological substances; Z79.899 Other long term (current) drug therapy

== ENCOUNTER → 2018-02-27 | Outpatient (CLI) | payer MEDICARE, OTHER ==
--- NOTE | 2018-02-27 09:34 | RAD ---
EXAM DESCRIPTION: Ankle,Left 3 Views CLINICAL HISTORY: 87 years Female, BIMALLEOLAR FRACTURE OF ANKLE LEFT COMPARISON: November 07, 2017 FINDINGS: Three views of the left ankle were obtained. Again seen are postoperative changes in the lateral malleolus without apparent hardware complication. There is some calcification adjacent to the medial malleolus which is stable or slightly increased from the prior exam but does not appear acute. This may be related to an old healed or healing medial malleolar fracture. The tibiotalar joint space and talar dome are well-maintained. Diffuse soft tissue swelling is noted. The subtalar joint is unremarkable. IMPRESSION: Postoperative changes in the left ankle without apparent hardware or other surgical complication. Evidence of remote trauma and diffuse soft tissue swelling, but no acute fracture or malalignment. Electronically signed by: Amandeep Villalta MD 02/27/2018 9:33 AM CDT
== END ==
LOC: RAD 08:26
PROVIDERS: ATTEND Orthopaedic Surgery
DX: S82.842D Displaced bimalleolar fracture of left lower leg, subsequent encounter for closed fracture with routine healing (principal); Z98.890 Other specified postprocedural states

== ENCOUNTER → 2018-08-01 | Outpatient (CLI) | payer MEDICARE, OTHER | LOC: YCHH 09:16 | PROVIDERS: ATTEND Family Medicine | DX: M15.0 Primary generalized (osteo)arthritis (principal); I10 Essential (primary) hypertension; E03.8 Other specified hypothyroidism; D64.9 Anemia, unspecified ==

== ENCOUNTER → 2020-03-04 | Outpatient (CLI) | payer MEDICARE, OTHER | LOC: LAB.O 10:36 | PROVIDERS: ATTEND Nurse Practitioner Family | DX: R19.7 Diarrhea, unspecified (principal) ==